=== PATIENT | female | born 1985 | race Caucasian/White ===

== ENCOUNTER 2022-03-11 16:44 | Emergency (ER) | payer BC ==
[2022-03-11 17:20] VITALS: BP 143/78; PULSE 95; O2SAT 100
--- NOTE | 2022-03-11 18:03 | ERPHSYRPT ---
- History of Present Illness Time Seen by Provider: 03/11/22 16:50 Source: patient Exam Limitations: no limitations Patient Subjective Stated Complaint: Right leg pain Triage Nursing Assessment: Patient ambulated back to ED and transferred self to bed. Patient A+O X3 .Patient's skin pink, warm and dry. Patient complains of right upper thigh pain 4/10, but worse when walking. Patient states she was running when she felt a pain in the upper back thigh area. Patient does have swollen area to upper right thigh. Physician History: 36 years old healthy female on control pills presented in the ER with chief complaint of right posterolateral thigh pain which she noticed while she was running earlier. Patient reports she noted some swelling and throbbing pain in certain spots which is worse with ambulation and better with resting. No fall or trauma. No difficulty movements at knee/calf. Denies any insect bite. Patient is worried about DVT. Timing/Duration: hour(s) (1), sudden Severity: mild, moderate Modifying Factors: Improves With: immobilization. Worsens With: movement Associated Symptoms: denies symptoms Allergies/Adverse Reactions: No Known Drug Allergies Allergy (Verified 03/11/22 17:11) Home Medications: norgestimate-ethinyl estradioL [Norg-Ee 0.18-0.215-0.25/0.025] 1 tab PO DAILY 03/11/22 [History] Hx Tetanus, Diphtheria Vaccination/Date Given: No Hx Influenza Vaccination/Date Given: No Hx Pneumococcal Vaccination/Date Given: No Immunizations Up to Date: Yes Travel Risk - International Travel Have you traveled outside of the country in past 3 weeks: No - Coronavirus Screening Are you exhibiting any of the following symptoms?: No Close contact with a COVID-19 positive Pt in past 14-21 Days: No - Vaccine Status Have you recieved a Covid-19 vaccination: Yes Cloth Measurer Machine: Ascenz - Vaccination Dates Date of 2cond Vaccination (if applicable): na - Review of Systems Constitutional: No Symptoms Ears, Nose, & Throat: No Symptoms Respiratory: No Symptoms Cardiac: No Symptoms Abdominal/Gastrointestinal: No Symptoms Genitourinary Symptoms: No Symptoms Musculoskeletal: Myalgias Skin: No Symptoms Neurological: No Symptoms Endocrine: No Symptoms Hematologic/Lymphatic: No Symptoms - Past Medical History Pertinent Past Medical History: No - Past Surgical History Past Surgical History: Yes Female Surgical History: Section Other Surgical History: 2013 Left node biopsy for melanoma - Social History Smoking Status: Never smoker Exposure to second hand smoke: No Drug Use: none Patient Lives Alone: No - Female History Hx Last Menstrual Period: 3 weeks ago Hx Now: No - Nursing Vital Signs Nursing Vital Signs: Initial Vital Signs Pulse Rate 95 H 03/11/22 17:14 Respiratory Rate 18 03/11/22 17:14 Blood Pressure 143/78 03/11/22 17:14 O2 Sat by Pulse Oximetry 100 03/11/22 17:14 Pain Scale Pain Intensity 4 - Physical Exam General Appearance: no apparent distress, alert Eye Exam: PERRL/EOMI Neck Exam: normal inspection, supple, full range of motion Respiratory Exam: normal breath sounds, lungs clear Cardiovascular Exam: regular rate/rhythm, normal heart sounds Gastrointestinal/Abdomen Exam: soft, No tenderness Back Exam: normal inspection, normal range of motion Extremity Exam: normal inspection, normal range of motion, pelvis stable, tenderness (Mild tenderness right posterior lateral upper thigh with no obvious swelling or erythema. No bony tenderness at all.) Neurologic Exam: alert, oriented x 3, cooperative Skin Exam: normal color SpO2 Interpretation: normal SpO2: 100 O2 Delivery: Room Air Ordered Tests: Active Orders 24 hr Category Date Time Status Ultrasound Unilateral Extremities [VENOUS UNILAT/ Exams 03/11/22 17:12 Taken LIMITED EXTREMIT] [US] Stat - Progress Progress: unchanged, re-examined Progress Note: 03/11/22 18:00 36 years old is evaluated in the ER for right upper posterior lateral thigh pain sudden onset while she was running. Patient is on controls and worried about blood clot. No fall or trauma. No bony tenderness. Intact range of motion of all joints. No signs of cellulitis. Pain is more with taking the step pointing towards some kind of ligamentous injury. Ultrasound negative for DVT per preliminary report, official report is pending. Recommended weightbearing as tolerated and outpatient orthopedics follow-up. Offered pain medication in here which she declined, recommended taking Tylenol/ibuprofen and outpatient follow-up. Discussed signs symptoms of worsening needing return to ER which she seems understanding. Counseled pt/family regarding: diagnosis, need for follow-up, rad results - Departure Departure Disposition: Home Clinical Impression: Muscle strain of right thigh Condition: Stable Critical Care Time: No Referrals: OSIEL MUNOZ NP [Primary Care Provider] - Follow up/PCP as directed (1-2 days for reevaluation) ORTHO - LING SMITH NP [NON-STAFF PHY W/O PRIVILEGES] - Follow up/PCP as directed (1-2 days for reevaluation) Instructions: Muscle Strain (DC) Additional Instructions: Take Tylenol/ibuprofen as needed. Avoid exertional workouts. Weightbearing as tolerated. Follow-up with Ortho/primary care for reevaluation. Return to ER for any worsening. Prescriptions: Ibuprofen 600 mg PO Q6HPRN PRN 10 Days #20 tablet PRN Reason: Pain
--- NOTE | 2022-03-12 08:49 | XRAY ---
Indication: Pain. Two-dimensional sonogram and color Doppler imaging of the major venous vessels of the right leg performed. Comparison: None No thrombus seen in the examined deep venous vessels of the right leg including greater saphenous vein. Veins demonstrate normal compressibility. Venous waveforms are normal with and without augmentation. Impression: Right leg negative for DVT. Comment: Preliminary report was given.
== END 2022-03-11 18:14 | disposition home or self-care (01) ==
LOC: ED 16:44
DX: S76.911A Strain of unspecified muscles, fascia and tendons at thigh level, right thigh, initial encounter (principal); X50.9XXA Other and unspecified overexertion or strenuous movements or postures, initial encounter; Y93.02 Activity, running; M79.651 Pain in right thigh
CPT/HCPCS: 93971; 99282

== ENCOUNTER 2024-05-06 10:31 | Day surgery (SDC) | payer BC ==
[~2024-05-06 10:31] MED LIST: Sensorcaine 0.25% 10 ML ONE; Versed 2 MG/2 ML Injection IV PRN
[2024-05-06] MEDS ORDERED: TYLENOL EXTRA STRENGTH 500 MG ONE (10:44)
[2024-05-06] MEDS ORDERED: CEFAZOLIN 2 GM/100 ML NaCl 2 GM/100 ML IVPB IV ONE (10:44)
[2024-05-06] MEDS ORDERED: Transderm Scop 1.5MG Patch ONE (10:44)
[2024-05-06] MEDS ORDERED: Decadron 4 MG ONE (10:44)
[2024-05-06] MEDS ORDERED: celeBREX 100 MG ONE (10:44)
[2024-05-06] MEDS ORDERED: Pepcid 20 MG VIAL IV ONE (10:44)
[2024-05-06] MEDS ORDERED: NEURONTIN ONE (10:44)
[2024-05-06] MEDS ORDERED: Lactated Ringers 1,000 ML IV ONE (10:44)
[2024-05-06 10:53] LABS: HCG URINE TEST NEGATIVE (NEGATIVE)
[2024-05-06] MEDS: Transderm Scop 1.5MG Patch TOP PRN (10:53)
[2024-05-06] MEDS: celeBREX 100 MG PO ONE (10:53)
[2024-05-06] MEDS: Decadron 4 MG PO ONE (10:53)
[2024-05-06] MEDS: TYLENOL EXTRA STRENGTH 500 MG PO ONE (10:53)
[2024-05-06] MEDS: Pepcid 20 MG VIAL IV ONE (10:53)
[2024-05-06] MEDS: NEURONTIN PO ONE (10:53)
[2024-05-06] MEDS: Lactated Ringers 1,000 ML IV SCH (10:54)
[2024-05-06] MEDS: CEFAZOLIN 2 GM/100 ML NaCl 2 GM/100 ML IVPB IV SCH (10:55)
[2024-05-06 11:07] VITALS: O2SAT 100
[2024-05-06] MEDS ORDERED: Zofran 4 MG/2 ML VIAL ONE (11:46)
[2024-05-06] MEDS ORDERED: SUBLIMAZE 100 MCG/2 ML ONE ×2 (11:46→13:51)
[2024-05-06] MEDS ORDERED: Xylocaine-Mpf 2% 5 Ml Vial ONE (11:46)
[2024-05-06] MEDS ORDERED: ROCURONIUM BROMIDE IV ONE (11:46)
[2024-05-06] MEDS ORDERED: TORAdol 30 mg Injection ONE (11:46)
[2024-05-06] MEDS ORDERED: BRIDION 200MG/2ML IV ONE (11:46)
[2024-05-06] MEDS ORDERED: propofoL IV ONE (11:46)
[2024-05-06] MEDS ORDERED: Versed 2 MG/2 ML Injection ONE (11:46)
[2024-05-06] MEDS ORDERED: dexAMETHasone sodium phosphate ONE (11:46)
[2024-05-06] MEDS ORDERED: Hydromorphone 1 mg/ml Injection ONE (13:52)
[2024-05-06 15:07] VITALS: BP 108/72; PULSE 83; RESP 13; TEMP 97.5
--- NOTE | 2024-05-07 09:44 | OP ---
SURGERY DATE/TIME: 05/06/2024 1230-____ PREOPERATIVE DIAGNOSIS: Left axillary lymphadenopathy. POSTOPERATIVE DIAGNOSIS: Left axillary lymphadenopathy. PROCEDURE: Excisional biopsy of left axillary lymph nodes. SURGEON: Monster Priest MD ANESTHESIA: General. ESTIMATED BLOOD LOSS: Minimal. PATIENT CONDITION: Stable. COMPLICATIONS: None. SPECIMENS: 1) Left axillary lymph node on RPMI. 2) Left axillary lymph node on formalin. 3) Left axillary lymph node #2 on RPMI. 4) Left axillary lymph node on formalin. 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 She does have a history of melanoma. The ultrasound characteristics were otherwise benign other than size, but discussion had with the patient. Risks of infection, bleeding, injury to nearby structure, possibility of benign versus malignancy. With her history of the melanoma and increasing size on surveillance I do recommend excision and she wants to proceed with that. We also discussed lymphedema. She would like to proceed. FINDINGS: A 2 cm what looks like 2 adjacent nodes as a cluster but about 2 cm x 1 cm x 1 cm cluster and then a separate just over 1 cm lymph node. Those were bisected and sent on RPMI and formalin. DESCRIPTION OF PROCEDURE: Patient brought to the operating room. General anesthesia was induced. She was routinely positioned, prepped and draped. Time-out was performed. Received a preoperative antibiotic. Curvilinear incision made inferior axillary hairline, carried down through the fascia and then, at that point, able to palpate the lymph node that then was dissected out circumferentially. This was just over 2 cm long, about 1 cm wide. This might just be 1 node or it could be 2 nodes together, but it is circumferentially dissected out. Clips used and the specimen was delivered. The specimen then was bisected and sent on RPMI, as well as formalin for lymph node protocol. There was another palpable node about 1 cm that was dissected out. This one is deeper. The thoracodorsal bundle is identified and stimulated but the second node was then bisected and sent on RPMI and formalin also. There is good hemostasis. There is nothing else palpable in the axilla. It is thoroughly evaluated, the entire axilla. There is nothing else pathologic. Fascia was closed with 2-0 Vicryl suture, deep dermal with 3-0 Vicryl. Skin was closed with 4-0 Vicryl sutures. Dermabond applied. All counts were correct. Patient tolerated the procedure well. Plan is for extubation.
== END 2024-05-06 15:19 | disposition home or self-care (01) ==
LOC: SDC 10:31
PROVIDERS: ATTEND Surgery
DX: R59.1 Generalized enlarged lymph nodes (principal)
CPT/HCPCS: 81025; J0690; J1100; J1171; J1885; J2250; J2405; J2704; J3010; A9270-GY